=== PATIENT | female | born 1995 | race Caucasian/White ===

== ENCOUNTER → 2016-03-22 | Outpatient (CLI) | payer OTHER ==
[~2016-03-22] MED LIST: ADDERALL15 MG PO; ADDERALL20 MG PO; AMOXIL500 MG PO; BACTRIM DS 8001 TA1 PO; BIRTH CONTROL1 EAC1 PO; CIPRO250 MG PO; FLEXERIL10 MG PO; FLEXERIL5 MG PO; IMITREX25 MG PO; INTUNIV3 MG PO; LATUDA60 MG PO; LOMOTIL 0.025 M1 TA1 PO; MOTRIN400 MG PO; MOTRIN600 MG PO; MOTRIN800 MG PO; NORFLEX100 MG PO; PREDNICOT20 MG PO; PREDNISONE20 M1 PO; PYRIDIUM100 MG PO; PYRIDIUM200 MG PO; TRAMADOL HCL50 MG PO; TYLENOL W/CODEI1 TA2 PO; ZITHROMAX Z PA250 MG PO; ZYRTEC10 MG PO
== END ==
LOC: US 03:07
DX: Z34.01 Encounter for supervision of normal first pregnancy, first trimester (principal); Z3A.00 Weeks of gestation of pregnancy not specified